=== PATIENT | female | born 1985 | race Two or more races ===

== ENCOUNTER 2021-10-06 08:24 | Outpatient (CLI) | payer OTHER | END 2021-10-06 08:32 | disposition home or self-care (01) | LOC: SONOGRAMA 08:24 | PROVIDERS: ATTEND Pathology Anatomic Pathology & Clinical Pathology | DX: E04.2 Nontoxic multinodular goiter (principal) ==

== ENCOUNTER 2025-01-15 10:00 | Outpatient (CLI) | payer OTHER | END 2025-01-15 10:04 | disposition home or self-care (01) | LOC: SONOGRAMA 10:00 | PROVIDERS: ATTEND Pathology Anatomic Pathology & Clinical Pathology | DX: D34 Benign neoplasm of thyroid gland (principal); E07.89 Other specified disorders of thyroid; E04.1 Nontoxic single thyroid nodule ==